=== PATIENT | male | born 1995 | race Caucasian/White ===

== ENCOUNTER 2023-10-29 08:55 | Emergency (ER) | payer BC ==
[~2023-10-29] VITALS: Ht 177.8 cm; Wt 117.9 kg
[2023-10-29 09:00] VITALS: BP_SYST 154; PULSE 68; RESP 20; TEMP 98.3; O2SAT 97
[2023-10-29] MEDS ORDERED: PRED50TA PO (09:14)
[2023-10-29] MEDS ORDERED: BROM118S61 PO (09:14)
[2023-10-29] MEDS ORDERED: ZIT250 PO (09:14)
[2023-10-29 09:20] VITALS: BP_SYST 154; PULSE 68; RESP 20; TEMP 98.3; O2SAT 97
== END 2023-10-29 09:22 | disposition home or self-care (01) ==
LOC: SED 08:55
DX: J36 Peritonsillar abscess (principal)
CPT/HCPCS: 99283